=== PATIENT | female | born 1945 | race Caucasian/White ===

== ENCOUNTER 2018-01-09 23:17 | Observation (INO) | payer MEDICARE ==
[~2018-01-09] VITALS: Ht 175.3 cm; Wt 89.6 kg
[2018-01-10 00:26] LABS: BASO % 0.3 % (0.0-2.0); EOS % 0.3 % (0-4.0); GRAN # 4.3 (1.4-6.5); GRAN % 64.6 % (42.2-75.2); HEMOGLOBIN 11.2 g/dl (12.5-16.0); LYMPH # 1.6 (1.2-3.4); MEAN CELL VOLUME 94 fl (80.0-100.0); MEAN CORPUSCULAR HEMOGLOBIN 31 pg (27.0-31.0); MEAN CORPUSCULAR HGB CONC 33 g/dl (33.0-37.0); MEAN PLATELET VOLUME 10.6 fl (7.4-10.4); MONO # 0.7 (0.1-0.6); MONO % 10.4 % (1.7-9.3); PLATELET COUNT 222 K/mm3 (130-400); RED BLOOD COUNT 3.59 M/mm3 (4.10-5.30); REDCELL DISTRIBUTION WIDTH-CV 13.2 % (11.5-14.5)
[2018-01-10] MEDS ORDERED: SYNTHROID0.088 MG/T PO (00:29)
[2018-01-10] MEDS ORDERED: LEXAPRO20 MG PO (00:30)
[2018-01-10] MEDS ORDERED: NOVOLOG 100U100 U/M1 SQ (00:30)
[2018-01-10] MEDS ORDERED: TOUJEO300 U/ML SQ (00:31)
[2018-01-10] MEDS ORDERED: GLUMETZA1000 MG PO (00:32)
[2018-01-10 00:42] LABS: ALANINE AMINOTRANSFERASE 15 U/L (9-52); ALBUMIN 3.9 gm/dL (3.5-5.0); ALKALINE PHOSPHATASE 62 U/L (50-136); ANION GAP 10 mmol/L (7-16); AST,SGOT 13 U/L (15-37); BILIRUBIN,TOTAL 0.5 mg/dL (0.0-1.0); BLOOD UREA NITROGEN 12 mg/dL (7-17); CALCIUM 8.9 mg/dL (8.4-10.2); CARBON DIOXIDE 27 mmol/L (22-30); CHLORIDE 95 mmol/L (98-107); CREATININE, serum 0.78 mg/dL (0.52-1.25); GLUCOSE 308 mg/dL (74-106); SODIUM 133 mmol/L (137-145); TOTAL PROTEIN 7.3 gm/dL (6.4-8.2)
[2018-01-10 00:49] LABS: HEMATOCRIT 33.6 % (37.0-47.0)
[2018-01-10 00:54] LABS: C-REACTIVE PROTEIN 15.1 mg/dL (0.0-0.9)
[2018-01-10 01:09] LABS: ACETONE,SERUM NEGATIVE
[2018-01-10 01:52] LABS: COLLECTION METHOD CLEAN CATCH
[2018-01-10 02:17] LABS: MUCOUS Present /lpf; PH 6 (5-8); SQUAMOUS EPITHELIAL 0-2 /hpf; URINE APPEARANCE Hazy; URINE BACTERIA Rare /hpf; URINE BILIRUBIN Negative (NEGATIVE); URINE BLOOD 1+ (NEGATIVE); URINE COLOR Yellow; URINE GLUCOSE 3+ (NEGATIVE); URINE KETONE Negative (NEGATIVE); URINE LEUKOCYTE ESTERASE 3+ (NEGATIVE); URINE NITRATE Positive (NEGATIVE); URINE PROTEIN(semi-quant) 1+ (NEGATIVE); URINE RBC 0-2 /hpf; URINE UROBILINOGEN Negative (NEGATIVE)
[2018-01-10 06:11] VITALS: BP 131/72; PULSE 68; TEMP 98.5
[2018-01-10 08:32] VITALS: BP 144/76; PULSE 74; TEMP 98.5
[2018-01-10 11:35] VITALS: BP 138/72; PULSE 72; TEMP 98.2
[2018-01-10 15:57] VITALS: BP 155/78; PULSE 17; TEMP 98.2
[2018-01-10 20:00] VITALS: BP 156/76; PULSE 74; TEMP 98.9
[2018-01-10 23:13] VITALS: BP 152/91; PULSE 78; TEMP 100.3
[2018-01-11 03:43] VITALS: BP 154/80; PULSE 71; TEMP 98.2
[2018-01-11 07:12] LABS: BASO % 0.5 % (0.0-2.0); EOS % 0.5 % (0-4.0); GRAN # 4.2 (1.4-6.5); HEMOGLOBIN 10.6 g/dl (12.5-16.0); LYMPH # 1.1 (1.2-3.4); MEAN CELL VOLUME 94 fl (80.0-100.0); MEAN CORPUSCULAR HEMOGLOBIN 31 pg (27.0-31.0); MEAN CORPUSCULAR HGB CONC 33 g/dl (33.0-37.0); MEAN PLATELET VOLUME 10.3 fl (7.4-10.4); MONO # 0.7 (0.1-0.6); MONO % 11.5 % (1.7-9.3); PLATELET COUNT 221 K/mm3 (130-400); RED BLOOD COUNT 3.43 M/mm3 (4.10-5.30); REDCELL DISTRIBUTION WIDTH-CV 13.4 % (11.5-14.5)
[2018-01-11 07:16] LABS: HEMATOCRIT 32.1 % (37.0-47.0)
[2018-01-11 07:20] VITALS: BP 175/80; PULSE 79; TEMP 99.1
[2018-01-11 07:28] LABS: CALCIUM 8.2 mg/dL (8.4-10.2); CREATININE, serum 0.63 mg/dL (0.52-1.25); POTASSIUM 3.8 mmol/L (3.4-5.0)
[2018-01-11] MEDS ORDERED: DITROPAN 5MG TAB5 MG PO (09:57)
[2018-01-11] MEDS ORDERED: OMNICEF 300MG300 MG PO (09:57)
== END 2018-01-11 12:41 | disposition home or self-care (01) ==
LOC: COL.ER 23:17 → MEDICAL 01-10 02:34
PROVIDERS: Emergency Medicine; Nurse Practitioner
DX: N39.0 Urinary tract infection, site not specified (principal); E11.9 Type 2 diabetes mellitus without complications; Z79.4 Long term (current) use of insulin; E03.9 Hypothyroidism, unspecified; F32.9 Major depressive disorder, single episode, unspecified; F17.210 Nicotine dependence, cigarettes, uncomplicated; R32 Unspecified urinary incontinence
CPT/HCPCS: G0378; J0696; J1815; J7030